=== PATIENT | male | born 1935 | race Caucasian/White ===

== ENCOUNTER 2016-07-25 16:16 | Emergency (ER) | payer SELFPAY ==
[~2016-07-25] VITALS: Ht 160 cm; Wt 64.5 kg
[2016-07-25 16:20] VITALS: Ht 160 cm; Wt 64.5 kg
--- NOTE | 2016-07-25 20:02 | RADRPT ---
PROCEDURE: XR Knee. CLINICAL INDICATION: Left knee pain TECHNIQUE: 3 images of the left knee are available for review. COMPARISON: None available FINDINGS: There is no acute fracture. Alignment is normal. There is mild medial and minimal lateral/patellofemoral compartment osteoarthrosis. There is also m ild to moderate prepatellar soft tissue swelling. Ossification along the medial femoral condyle likely is from a remote medial collateral ligament spr ain. IMPRESSION: 1. No radiographic evidence of acute osseous abnormality noting sequela of remote proximal medial co llateral ligament sprain. 2. Mild tricompartmental osteoarthrosis. 3. Mild to moderate prepatellar soft tissue swelling. RPTAT: UU .Yair Gates MD, MD Date Time Electronically viewed and signed by .Yair Gates MD, MD on 07/25/2016 20:02 .K/
[2016-07-25] MEDS ORDERED: IBUP400T22 PO ×2 (20:06→22:12)
[2016-07-25] MEDS ORDERED: ACET1TAB40 PO (20:08)
--- NOTE | 2016-07-25 20:14 | ERD ---
ER Documentation Chief Complaint Date/Time DATE: 07/25/16 TIME: 20:10 Chief Complaint pain in feet unsteady gait x 3 days HPI This is a 1-year-old male presenting to the emergency department brought in by son for left knee pain for the past 3 days. Patient states the pain is 10 out of 10, he denies any fall or injury. Patient admits to swelling in the left knee. He states that he took ibuprofen this morning without any relief. Patient denies any other medical problems. Denies alcohol use. ROS All systems reviewed and are negative except as per history of present illness. Medications Home Meds Active Scripts Acetaminophen with Codeine (Acetaminophen-Cod #3 Tablet) 1 Each Tablet, 1 TAB PO Q6H Y for PAIN, #20 TAB Prov:ALFONSO CABRERA PA-C 07/25/16 Ibuprofen* (Motrin*) 400 Mg Tab, 400 MG PO Q6H Y for PAIN AND OR ELEVATED TEMP, #30 TAB Prov:ALFONSO CABRERA PA-C 07/25/16 PMhx/Soc Hx Alcohol Use: No Hx Substance Use: No Hx Tobacco Use: No Smoking Status: Unknown if ever smoked Physical Exam Vitals Vital Signs Date Time Temp Pulse Resp B/P Pulse Ox O2 Delivery O2 Flow Rate FiO2 07/25/16 16:20 99.0 96 20 142/81 96 Physical Exam General: WD/WN, in no apparent distress, non-toxic appearing HENT: NC/AT Eyes: Conjunctiva normal Neck: Supple Pulm: Clear to auscultation, normal labored breathing; no wheezing/rales/ rhonchi heard CV: Good capillary refill GI: Non-distended, no guarding Back: No masses Ext: Moderate swelling and mild erythema to the left knee, full passive range of motion, no induration or Neuro: Moves on all fours Skin: intact Psych: Normal mood Procedures/MDM This is an 81-year-old male presents emergency room with left knee pain likely due to a medial collateral ligament sprain. Differentials include but not limited to septic arthritis, osteomyelitis, meniscal tear, ligamentous injury, fracture, tendinitis. On examination patient had small swelling to the left knee and tenderness. A x-ray of the left knee was done and radiologist stated: 1. No radiographic evidence of acute osseous abnormality noting sequela of remote proximal medial collateral ligament sprain. 2. Mild tricompartmental osteoarthrosis. 3. Mild to moderate prepatellar soft tissue swelling. Patient will be given prescription for Tylenol No. 3 and instructions to follow- up with his primary care physician to get a referral to see orthopedist. I discussed with patient to return to the ER for any worsening sinus symptoms. Patient is neurovascular intact pre-and post treatment. CBC and ESR were drawn to rule out septic arthritis, results are still pending and will be followed up by MARLYS Ron. If these results are abnormal he will change the disposition and likely follow-up with our attending physician. If results are normal, patient is discharged per my instructions. Departure Diagnosis: Primary Impression: Knee sprain Additional Impression: Knee pain Condition: Stable Patient Instructions: Knee Pain, Uncertain Cause, Knee Sprain Referrals: [facility] Additional Instructions: Visite a [facility] maana para un EXAMEN.Regrese a estas instalaciones si no se mejora wili esperbamos o wili le dijimos. [place] toda la medicina ludy y wili se le indic. Specialist:Usted tiene sandi condicin mdica que requiere que emilia a un especialista dentro de los prximos 1-2 chowdary.POR FAVOR,CON [facility] SEGUIMIENTO DE PRIMARIA PHSICIAN refferal. SI USTED NO TIENE UN MDICO GENERAL Y / O USTED NO PUEDE PAGAR reilly a un mdico,los siguientes medina RECURSOS sido suministrado a usted. ES [facility] RESPONSABILIDAD PARA SER VISTOS POR EL ESPECIALISTA: ALFONSO CABRERA PA-C Jul 25, 2016 20:14
[2016-07-25 20:26] LABS: ADD SCAN DIFF NO
[2016-07-25 20:28] LABS: BASOPHILS % 0.4 % (0.0-2.0); EOSINOPHILS # 0.3 10^3/ul (0.0-0.5); EOSINOPHILS % 3.2 % (0.0-7.0); HEMOGLOBIN 13.1 g/dl (14.0-18.0); LYMPHOCYTES # 2.2 10^3/ul (0.8-2.9); LYMPHOCYTES % 23.9 % (15.0-51.0); MEAN CORPUSCULAR HEMOGLOBIN 30.5 pg (29.0-33.0); MEAN CORPUSCULAR HGB CONC 33.6 g/dl (32.0-37.0); MEAN CORPUSCULAR VOLUME 90.7 fl (82.0-101.0); MEAN PLATELET VOLUME 9.5 fl (7.4-10.4); MONOCYTE # 0.8 10^3/ul (0.3-0.9); MONOCYTES % 8.8 % (0.0-11.0); NEUTROPHILS % 63.5 % (39.0-77.0); PLATELET COUNT 217 10^3/UL (140-415); WHITE BLOOD COUNT 9.4 10^3/ul (4.8-10.8)
--- NOTE | 2016-07-25 22:17 | EN ---
Date/Time of Note Date/Time of Note DATE: 07/25/16 TIME: 22:13 ER Progress Note ESR is 45 and result was discussed with Dr. Khan. He agreed to discharge the patient with a prescription for anti-inflammatories. Patient will be discharged home with a left knee immobilizer. CHRISTINE OMER Jul 25, 2016 22:17
[2016-07-25 22:50] VITALS: BP 161/86; PULSE 82; RESP 16
== END 2016-07-25 22:51 | disposition home or self-care (01) ==
LOC: FTE 16:16
DX: S83.92XA Sprain of unspecified site of left knee, initial encounter (principal); X58.XXXA Exposure to other specified factors, initial encounter; Y92.9 Unspecified place or not applicable
CPT/HCPCS: 36415; 73562; 85025; 85651